=== PATIENT | female | born 1960 | race Hispanic/Latino ===

== ENCOUNTER 2017-08-25 20:26 | Emergency (ER) | payer SELFPAY ==
[2017-08-25] MEDS ORDERED: valACYclovir 500 MG TAB ONE (20:40)
[2017-08-25] MEDS ORDERED: Lidocaine 4% Cream 5 GM TUBE w/ Tegaderm ONE (20:43)
[2017-08-25] MEDS ORDERED: Lidocaine Viscous Sol 2% 15 ml UD Cup ONE (20:43)
[2017-08-25] MEDS ORDERED: Acetaminophen/Codeine 30-300mg Tablet ONE (21:07)
[2017-08-25] MEDS ORDERED: Gabapentin 300 MG CAP PO SCH (21:15)
== END 2017-08-25 21:25 | disposition home or self-care (01) ==
LOC: NAV ERS 20:26
DX: B02.9 Zoster without complications (principal); Z87.891 Personal history of nicotine dependence
CPT/HCPCS: 99282